=== PATIENT | male | born 1950 | race Two or more races ===

== ENCOUNTER 2024-09-22 18:52 | Emergency (ER) | payer MEDICARE, OTHER ==
[~2024-09-22] VITALS: Ht 175.3 cm; Wt 73.4 kg
[2024-09-22 20:16] VITALS: TEMP 98.4
[2024-09-22 20:46] LABS: BASOPHILS % (AUTO) 0.5 % (0.0-2.0); EOSINOPHILS % (AUTO) 2.7 % (1.0-6.0); HEMATOCRIT 27.4 % (41-53); HEMOGLOBIN 8.5 g/dL (13.5-17.5); LYMPHOCYTES # (AUTO) 1.2 K/uL (1.0-4.8); LYMPHOCYTES % (AUTO) 13.8 % (22.0-44.0); MEAN CORPUSCULAR HEMOGLOBIN 25.9 pg (26.0-34.0); MEAN CORPUSCULAR VOLUME 83 fL (80-100); MONOCYTES # (AUTO) 0.7 K/uL (0.1-1.0); MONOCYTES % (AUTO) 8.3 % (2.0-9.0); NEUTROPHILS # (AUTO) 6.2 K/uL (1.8-7.7); NEUTROPHILS % (AUTO) 74.7 % (40.0-70.0); PLATELET COUNT (AUTO) 349 K/uL (150-450); RED BLOOD CELL COUNT(AUTO) 3.29 MIL/uL (4.50-5.90); RED CELL DISTRIBUTION WIDTH 17.4 % (11.5-14.5); WHITE BLOOD COUNT (AUTO) 8.3 K/uL (4.5-11.0)
[2024-09-22 21:05] LABS: PROTHROMBIN TIME 10.8 SEC (9.4-11.6)
[2024-09-22 21:10] LABS: ANION GAP 6 mmol/L (8-16); CALCIUM, TOTAL 7.8 mg/dL (8.8-10.5); CARBON DIOXIDE 29 mmol/L (22-29); CHLORIDE 103 mmol/L (98-107); CREATININE 0.65 mg/dL (0.60-1.30); GLOMERULAR FILTR. RATE CALC > 60 mL/min (>60); GLUCOSE,RANDOM 111 mg/dL (70-110); SODIUM SERUM 138 mmol/L (136-145); UREA NITROGEN, BLOOD 17 mg/dL (7-18)
[2024-09-22 21:17] LABS: ALANINE AMINOTRANSFERASE 21 U/L (12-78); ALBUMIN 2.5 g/dL (3.4-5.0); ALKALINE PHOSPHATASE 158 U/L (46-116); ASPARTATE AMINOTRANSFERASE 16 U/L (15-37); BILIRUBIN,TOTAL 0.1 mg/dL (0.1-1.0); LIPASE 111 U/L (16-77)
[2024-09-22 21:18] LABS: TROPONIN I-HIGH SENSITIVITY 10 ng/L (<76)
[2024-09-22] MEDS: ONDANSETRON HCL 4 MG/2 ML VIAL IVP ONE (21:54)
[2024-09-22] MEDS: HYDROmorphone HCL 2 MG/ML SYRINGE IVP ONE (21:54)
[2024-09-23] MEDS: FAMOTIDINE 20 MG/2 ML VIAL IVP ONE (00:23)
[2024-09-23 00:52] LABS: COVID AG,FIA SOURCE NASAL SWAB
[2024-09-23 01:10] LABS: SARS-COV2 (COVID) ANTIGEN,FIA Negative (Negative)
[2024-09-23] MEDS: SODIUM PHOSPHATE,MONO-DIBASIC 133 ML ENEMA PR ONE (01:59)
[2024-09-23] MEDS: ACETAMINOPHEN 500 MG TABLET PO ONE (03:36)
[2024-09-23 03:39] VITALS: BP 125/75; PULSE 90; RESP 16; O2SAT 99
[2024-09-23] MEDS ORDERED: POLY17PO62 PO (04:22)
== END 2024-09-23 04:49 | disposition home or self-care (01) ==
LOC: EMS 18:52
DX: K59.00 Constipation, unspecified (principal); R10.84 Generalized abdominal pain; I11.0 Hypertensive heart disease with heart failure; I50.9 Heart failure, unspecified; J44.9 Chronic obstructive pulmonary disease, unspecified; Z90.49 Acquired absence of other specified parts of digestive tract; Z20.822 Contact with and (suspected) exposure to COVID-19
CPT/HCPCS: 99285; 74176; 96374; 96375 ×2; 87426; 80053; 83690; 84484; 85025; 85610; 85730; 36415; 93005; J1171; J2405; J3490